=== PATIENT | male | born 1955 | race Two or more races ===

== ENCOUNTER 2018-09-12 11:43 | Observation (INO) | payer MEDICARE, MEDICAID ==
[~2018-09-12] VITALS: Ht 165.1 cm; Wt 74.2 kg
[2018-09-12] VITALS (11 sets, daily range): BP systolic 106–151; BP diastolic 66–83
[2018-09-12 12:07] LABS: BASOPHILS % (AUTO) 0 % (0-1); EOSINOPHILS % (AUTO) 0 % (1-7); LYMPHOCYTES # (AUTO) 0.77 x10^3/uL (1-3.4); LYMPHOCYTES % (AUTO) 7 % (22-44); MD NO; MEAN CORPUSCULAR HEMOGLOBIN 29.2 pg (27.5-34.5); MEAN CORPUSCULAR HGB CONC 33.8 g/dL (33.2-36.2); MEAN CORPUSCULAR VOLUME 86.5 fL (81-97); MEAN PLATELET VOLUME 6.9 fL (7.4-10.4); MONOCYTES % (AUTO) 1 % (2-9); NEUTROPHILS % (AUTO) 92 % (42-75); PLATELET COUNT 289 x10^3/uL (130-400); RED BLOOD COUNT 5.36 x10^6/uL (4.38-5.82); RED CELL DISTRIBUTION WIDTH 13.2 % (9.4-14.8)
[2018-09-12] MEDS ORDERED: LEVETIRACETAM 1,000 MG in SODIUM CHLORIDE 0.9% 100 ML IV ONE (12:13)
[2018-09-12 12:24] LABS: ANION GAP 9 mmol/L (5-15); CALCIUM 9.3 mg/dL (8.5-10.1); CHLORIDE 107 mmol/L (98-107); CREATININE 1.11 mg/dL (0.7-1.3)
[2018-09-12] MEDS ORDERED: LORazepam 2 MG/ML, 1ML ONE (12:30)
[2018-09-12] MEDS ORDERED: PLEASE ENTER ALLERGIES MC SCH (12:30)
--- NOTE | 2018-09-12 12:34 | NUR ---
[place] seizure at bedside by ED RN and ED staff right at time of intiating connection of IV tubing for PIV medications per Emar. Pt seized for approximately 1 minute. Pt placed on non-rebreather mask and repositioned in bed. Pt on non-rebreather mask at 10L and spo2 at 98%. Pt spo2% during seizure dropped to 80% on room air. Suciton set up at bedside as well as ambu bag set up and ready to go as need. Seizure precautions remained in place.
--- NOTE | 2018-09-12 12:40 | NUR ---
Pt in postictyl state at this time. Pt's eyes are closed and pt has restless movements with arms attempting to scratch face and turning his head side to side. Pt remains =on non-rebreather face mask at 10L and is connected to research biologist, spo2% monitor, and NIBP. PIV medication infusing per EMAR. PT has unlaobred respirations equal bilaterally.
--- NOTE | 2018-09-12 12:51 | NUR ---
PIV medication finished infusing per EMAR. PT remains in postictyl phase with restless movements of arms itching is face and nose and turning head back and forth. PT is sitting upright in bed with and seizure precautions remain in place. Pt has unlabored respirations equal bilaterally and spo2 at 93% on room air. Pt continues to remove face mask or nasal cannula. ED RN at bedside attempting to keep nasal cannula or non-rebreather mask on pt. Pt remains connected to all monitors. Pt had incontinet episode of bladder during wittnessed seizure.
[2018-09-12] MEDS ORDERED: LORazepam 2 MG/ML, 1ML IVPush PRN (13:00)
[2018-09-12] MEDS ORDERED: lisinopril PO (13:04)
[2018-09-12] MEDS ORDERED: LEVE500T8 PO (13:04)
--- NOTE | 2018-09-12 13:05 | NUR ---
Pt remains in postictyl states. PT has unlabored respirations equal bilaterally and spo2% is between 90-93% on room air. Pt remains connected to all monitors and seizure precautions remain in place. Pt continues to have restless movements of arms and is itching nose and face.
--- NOTE | 2018-09-12 13:06 | NUR ---
LATE NOTE ENTRY FOR 1146: Pt brought in by EMS with c/o seizure activity unwittnessed at home by pt's brother. Pt's brother went to check in on him in his room at 10:30 am and pt was not awake for the day. Pt's brother states pt was "not acting himself." Paramedics state pt is alert to self and place. PT restless stating nausea and requires assistance in changing out of clothes. Pt connected to all monitors and seizure precautions in place. Pt had 18 g PIV in right forearm in place prior to arrival. EMS states pt had empty bottle of keppra and lisinopril, and pt's brother states pt has been out of home meds for at least one week. Pt's brother states pt has an appt with neurology on 09/19/18. Pt recieved 4 mg IV zofran by EMS. Pt's FSBG at 150 by EMS. Pt AOX2. Pt denies pain. Pt has unlabored respirations equal bilaterall. NADN. Call light within reach. [facility] slip sent for request of PIV medication per EMAR.
--- NOTE | 2018-09-12 13:23 | NUR ---
Placed spo2% monitor on pt's left second toe. spo2% reading at 96% on room air. Pt remains in postictyl state with restless movements of arms scratching his nose and moving his head back and forth. Pt non-responsive to questions at this time.
[2018-09-12] MEDS ORDERED: NS + 20MEQ KCL 1,000 ML IV SCH (13:28)
[2018-09-12] MEDS ORDERED: ACETAMINOPHEN 325 MG TABLET PO PRN (13:30)
[2018-09-12] MEDS ORDERED: ONDANSETRON 2MG/ML, 2ML IVPush PRN (13:30)
[2018-09-12] MEDS ORDERED: DOCUSATE 100 MG CAPSULE PO PRN (13:30)
[2018-09-12] MEDS ORDERED: ENOXAPARIN 40 MG/0.4 ML SQ SCH (13:30)
[2018-09-12] MEDS ORDERED: POLYETHYLENE GLYCOL 17 GM PACKET PO PRN (13:30)
--- NOTE | 2018-09-12 13:38 | NUR ---
Provided report to ANDRÉS Bailey. All questions answered. Pt ready to transfer to floor from ED.
--- NOTE | 2018-09-12 13:56 | NUR ---
Provided report to ANDRÉS Jacobs. All questions answered. Pt ready to transfer to floor from ED.
--- NOTE | 2018-09-12 14:24 | NUR ---
Pt transfered to floor from ED and left with all personal belongings.
[2018-09-12] MEDS: FAMOTIDINE 20 MG TABLET PO SCH (20:31)
[2018-09-12] MEDS: LEVETIRACETAM 500 MG TABLET PO SCH (20:31)
[2018-09-13] VITALS: BP 129/81
[2018-09-13 01:48] VITALS: BP 129/81
--- NOTE | 2018-09-13 02:03 | NUR ---
JAVAN LOPEZRO - Fall Risk Medication(s) present and receiving anticoagulants.
[2018-09-13 05:16] VITALS: BP 151/74
[2018-09-13 07:13] VITALS: BP 136/78
[2018-09-13] MEDS ORDERED: SENNA/DOCUSATE TABLET PO SCH (09:00)
[2018-09-13] MEDS ORDERED: LISINOPRIL 10 MG TABLET PO SCH (09:00)
[2018-09-13] MEDS: LEVETIRACETAM 500 MG TABLET PO SCH (11:30)
[2018-09-13] MEDS: FAMOTIDINE 20 MG TABLET PO SCH (11:30)
[2018-09-13] MEDS ORDERED: LEVE500T8 PO (11:37)
[2018-09-13 12:11] VITALS: BP 145/84
== END 2018-09-13 14:14 | disposition home or self-care (01) ==
LOC: ED 13:13 → EDIP 13:14 → INTOOBSV 13:14 → SUATTDRO 13:25 → ED 14:06 → 3NE 15:03 → DCLOUNGE 09-13 14:00
PROVIDERS: ADMIT Family Medicine; ATTEND Family Medicine
DX: G40.909 Epilepsy, unspecified, not intractable, without status epilepticus (principal); I10 Essential (primary) hypertension; Z91.19 Patient's noncompliance with other medical treatment and regimen; Z23 Encounter for immunization
CPT/HCPCS: 36415; 80048; 83735; 85025; 90656; 96365; 96372; 99284; G0008; G0378; J1650; J1953; J3480; 99285